=== PATIENT | female | born 1990 | race Caucasian/White ===

== ENCOUNTER 2019-07-26 17:39 | Emergency (ER) | payer OTHER ==
[~2019-07-26] VITALS: Ht 190.5 cm; Wt 104.3 kg
[2019-07-26 19:01] LABS: ABSOLUTE EOSINOPHILS 0.1 thou/uL (0.0-0.7); ABSOLUTE LYMPHOCYTES 1.8 thou/uL (0.8-5.3); ABSOLUTE MONOCYTES 0.6 thou/uL (0.0-1.2); ABSOLUTE NEUTROPHILS 7.2 thou/uL (1.6-8.1); BASOPHILS 0.3 %; EOSINOPHILS 1.3 %; HEMATOCRIT 38.9 % (37.0-47.0); HEMOGLOBIN 13.8 gm/dL (12.0-15.0); MCH 32.3 pg (26.0-34.0); MCHC 35.5 g/dL (28.0-37.0); MCV 90.9 fL (80.0-100.0); MPV 7.5 fl. (7.2-11.1); NUCLEATED RBCS 0 /100WBC; PLATELET COUNT* 310 thou/uL (150-400); POLYS 74.4 %; RBC 4.27 mil/uL (4.20-5.00); RDW-CV 12.6 % (10.5-14.5); WBC 9.7 thou/uL (4.0-11.0)
[2019-07-26 19:11] LABS: CALCIUM 8.8 mg/dL (8.5-10.1); CREATININE 0.8 mg/dL (0.6-1.3); POTASSIUM 4.1 mmol/L (3.5-5.1)
[2019-07-26 19:16] LABS: ALBUMIN 4.1 g/dL (3.4-5.0); TOTAL BILIRUBIN 0.3 mg/dL (<0.1-1.0); TOTAL PROTEIN 7.9 g/dL (6.4-8.2)
[2019-07-26] MEDS ORDERED: PROPRANOLOL 1010 MG PO (20:43)
[2019-07-26 21:30] VITALS: BP 132/78
--- NOTE | 2019-07-28 10:06 | EKG ---
[place] [address] ELECTROCARDIOGRAM REPORT Name: ROSARIOJOSE Room: [facility]#: [id number] Admission: 07/26/19 Attend Phys: Discharge: 07/26/19 Date of : 89 Date of Service: 07/26/191747 Report #: [id number] THIS REPORT FOR: //name// [facility] ED Test Date: 2019-07-26 Test Time: 17:48:32 Pat Name: JOSE ROSARIO Department: Room: Gender: Counseling Department Chair: GOMEZ : 1990 Requested By: Dorinda Brandon Order Number: [id number] Ken MD: Marcellus Wilson Measurements Intervals [place] Rate: 90 P: 13 MT: 140 QRS: 43 QRSD: 92 T: 30 QT: 350 QTc: 429 Interpretive Statements Sinus rhythm Abnormal Q suggests anterior infarct No previous ECG available for comparison Electronically Signed On 07-28-2019 10:05:26 CDT by Marcellus Wilson [email or web address] <ELECTRONICALLY SIGNED> By: Marcellus Wilson MD, [facility] 07/28/19 [id number] Marcellus Wilson MD, FACC /EPI
== END 2019-07-26 21:32 | disposition home or self-care (01) ==
LOC: M.ERS 17:39
PROVIDERS: Physician Assistant
DX: R00.2 Palpitations (principal); R00.0 Tachycardia, unspecified